=== PATIENT | male | born 1975 | race Caucasian/White ===

== ENCOUNTER 2019-08-23 09:10 | Emergency (ER) | payer OTHER ==
--- NOTE | 2019-08-23 09:59 | EDM.PDOC ---
ED HPI GENERAL MEDICAL PROBLEM - General Chief Complaint: Flank Pain Stated Complaint: POSSIBLE KIDNEY STONE Time Seen by Provider: 08/23/19 09:59 Source of Information: Reports: Patient History Limitations: Reports: No Limitations - History of Present Illness INITIAL COMMENTS - FREE TEXT/NARRATIVE: Patient is a 44-year-old male's complaint of having left CVA and flank pain going on for several days but worse since last night. He states the pain is severe at times but denies any nausea vomiting or diarrhea. He has had no dysuria or hematuria. He denies of the pain radiates anywhere else. He has not had similar symptoms in the past. He has had pyelonephritis once in the past. He is taken nothing for his current pain symptoms. States the pain is keeping him up during the night. Denies having any fevers or shaking chills. Is any change in pain symptoms with eating. Pain is described as sharp in nature Duration: Day(s): (2 days) Location: Reports: Abdomen, Back Quality: Reports: Dull, Sharp Severity: Severe Improves with: Reports: None Worsens with: Reports: None Associated Symptoms: Reports: No Other Symptoms left flank Pain Score (Numeric/FACES): 7 - Related Data Allergies Allergy/AdvReac Type Severity Reaction Status Date / Time No Known Allergies Allergy Verified 08/23/19 09:32 Home Meds: Home Meds Multivitamin [Multi Vitamin Daily] 1 tab PO DAILY 05/10/14 [History] Past Medical History - Past Health History Medical/Surgical History: Denies Medical/Surgical History - Past Surgical History Musculoskeletal Surgical History: Reports: Arthroscopic Knee Social & Family History - Family History Family Medical History: Noncontributory - Tobacco Use Smoking Status *Q: Never Smoker - Recreational Drug Use Recreational Drug Use: No ED ROS GENERAL - Review of Systems Review Of Systems: Comprehensive ROS is negative, except as noted in HPI. ED EXAM, GI/ABD - Physical Exam Exam: See Below Text/Narrative:: Exam: See Below Exam Limited By: No Limitations Head: Atraumatic Neck: Normal Inspection. No: Carotid Bruit, Lymphadenopathy (R) Respiratory/Chest: No Respiratory Distress, Lungs Clear, Normal Breath Sounds, No Accessory Muscle Use. No: Chest Non-Tender Cardiovascular: Normal Peripheral Pulses, Regular Rate, Rhythm, No Edema, No JVD GI/Abdominal: Normal Bowel Sounds, Non-Tender, no splenomegaly Back Exam: Normal Inspection. No: CVA Tenderness (R). Slight tenderness on right flank. There is no rash. Extremities: Normal Inspection. No: No Pedal Edema Neurological: Alert, Oriented, Normal Cognition Psychiatric: Normal Affect Skin Exam: Warm Lymphatic: No Adenopathy Course - Vital Signs Last Recorded V/S: Last Vital Signs Temp 36.1 C 08/23/19 09:29 Pulse 78 08/23/19 09:29 Resp 18 08/23/19 09:29 BP 121/84 08/23/19 09:29 Pulse Ox 94 L 08/23/19 09:29 - Orders/Labs/Meds Orders: Active Orders 24 hr Category Date Time Status Sodium Chloride 0.9% [Saline Flush] Med 08/23/19 10:04 Active 10 ml FLUSH ASDIRECTED PRN Sodium Chloride 0.9% [Saline Flush] Med 08/23/19 10:04 Active 2.5 ml FLUSH ASDIRECTED PRN Saline Lock Insert [OM.PC] Stat Oth 08/23/19 10:04 Ordered Medication Orders Sodium Chloride (Saline Flush) 10 ml FLUSH ASDIRECTED PRN PRN Reason: Keep Vein Open Sodium Chloride (Saline Flush) 2.5 ml FLUSH ASDIRECTED PRN PRN Reason: Keep Vein Open Labs: Laboratory Tests 08/23/19 08/23/19 08/23/19 Range/Units 09:40 10:20 10:20 WBC 6.78 (4.0-11.0) K/uL RBC 4.99 (4.50-5.90) M/uL Hgb 15.4 (13.0-17.0) g/dL Hct 44.6 (38.0-50.0) % MCV 89.4 (80.0-98.0) fL MCH 30.9 (27.0-32.0) pg MCHC 34.5 (31.0-37.0) g/dL RDW Std Deviation 41.9 (28.0-62.0) fl RDW Coeff of Honey 13 (11.0-15.0) % Plt Count 205 (150-400) K/uL MPV 10.30 (7.40-12.00) fL Neut % (Auto) 69.1 (48.0-80.0) % Lymph % (Auto) 19.3 (16.0-40.0) % [place] % (Auto) 6.9 (0.0-15.0) % Eos % (Auto) 4.4 (0.0-7.0) % Baso % (Auto) 0.3 (0.0-1.5) % Neut # (Auto) 4.7 (1.4-5.7) K/uL Lymph # (Auto) 1.3 (0.6-2.4) K/uL [place] # (Auto) 0.5 (0.0-0.8) K/uL Eos # (Auto) 0.3 (0.0-0.7) K/uL Baso # (Auto) 0.0 (0.0-0.1) K/uL Nucleated RBC % 0.0 /100WBC Nucleated RBCs # 0 K/uL Sodium 137 (136-148) mmol/L Potassium 4.5 (3.5-5.1) mmol/L Chloride 100 (98-107) mmol/L Carbon Dioxide 29.5 (21.0-32.0) mmol/L BUN 23 H (7.0-18.0) mg/dL Creatinine 1.1 (0.8-1.3) mg/dL Est Cr Clr Drug Dosing 93.08 mL/min Estimated GFR (MDRD) > 60.0 ml/min Glucose 96 (74-106) mg/dL Calcium 9.3 (8.5-10.1) mg/dL Total Bilirubin 0.6 (0.2-1.0) mg/dL AST 85 H (15-37) IU/L ALT 66 H (14-63) IU/L Alkaline Phosphatase 63 (46-116) U/L Total Protein 7.9 (6.4-8.2) g/dL Albumin 4.3 (3.4-5.0) g/dL Globulin 3.6 (2.6-4.0) g/dL Albumin/Globulin Ratio 1.2 (0.9-1.6) Lipase 173 (73-393) U/L Urine Color YELLOW Urine Appearance CLEAR Urine pH 6.0 (5.0-8.0) Ur Specific [place] 1.020 (1.001-1.035) Urine Protein NEGATIVE (NEGATIVE) mg/dL Urine Glucose (UA) NEGATIVE (NEGATIVE) mg/dL Urine Ketones NEGATIVE (NEGATIVE) mg/dL Urine Occult Blood NEGATIVE (NEGATIVE) Urine Nitrite NEGATIVE (NEGATIVE) Urine Bilirubin NEGATIVE (NEGATIVE) Urine Urobilinogen 0.2 (<2.0) EU/dL Ur Leukocyte Esterase NEGATIVE (NEGATIVE) Meds: Medications Generic Name Dose Route Start Last Admin Trade Name Freq PRN Reason Stop Dose Admin Sodium Chloride 10 ml 08/23/19 10:04 Saline Flush FLUSH ASDIRECTED PRN Keep Vein Open Sodium Chloride 2.5 ml 08/23/19 10:04 Saline Flush FLUSH ASDIRECTED PRN Keep Vein Open Discontinued Medications Generic Name Dose Route Start Last Admin Trade Name Freq PRN Reason Stop Dose Admin Sodium Chloride 1,000 mls @ 999 mls/hr 08/23/19 10:08/23/19 10:19 Normal Saline IV 08/23/19 11:04 999 mls/hr BOLUS ONE Administration Ketorolac Tromethamine 30 mg 08/23/19 10:04 08/23/19 10:19 Toradol IVPUSH 08/23/19 10:05 30 mg ONETIME ONE Administration - Re-Assessments/Exams Free Text/Narrative Re-Assessment/Exam: 08/23/19 11:25 Patient's lab work and urine are unremarkable. CT scan shows him to have several pulmonary nodules largest being 7 mm with recommended follow-up in 3 to 6 months for repeat scan. Otherwise no clear source for patient's discomfort. We will discharge him home with some [place] for his nighttime pain so he can sleep. I recommend he follow-up with his PCP if symptoms continue he may return to ER if having fever chills vomiting or worse pain. Departure - Departure Time of Disposition: 11:26 Disposition: Home, Self-Care 01 Clinical Impression: Flank pain, acute - Discharge Information Instructions: Flank Pain, Adult, [id number] Referrals: Fredi Malhotra MD [Primary Care Provider] - Forms: ED Department Discharge Additional Instructions: [place] with meals. [place] if needed. Follow-up with PCP if not improving. See PCP for repeat CAT scan of the chest for pulmonary nodules within 6 months. Return to ER if having fever chills vomiting or worse pain. The following information is given to patients seen in the emergency department who are being discharged to home. This information is to outline your options for follow-up care. We provide all patients seen in our emergency department with a follow-up referral. The need for follow-up, as well as the timing and circumstances, are variable depending upon the specifics of your emergency department visit. If you don't have a primary care physician on staff, we will provide you with a referral. We always advise you to contact your personal physician following an emergency department visit to inform them of the circumstance of the visit and for follow-up with them and/or the need for any referrals to a consulting specialist. The emergency department will also refer you to a specialist when appropriate. This referral assures that you have the opportunity for follow-up care with a specialist. All of these measure are taken in an effort to provide you with optimal care, which includes your follow-up. Under all circumstances we always encourage you to contact your private physician who remains a resource for coordinating your care. When calling for follow-up care, please make the office aware that this follow-up is from your recent emergency room visit. If for any reason you are refused follow-up, please contact the [facility] Emergency Department at and asked to speak to the emergency department charge nurse. Sepsis Event Note - Evaluation Sepsis Screening Result: No Definite Risk - Focused Exam Vital Signs: Vital Signs Temp Pulse Resp BP Pulse Ox 08/23/19 09:29 36.1 C 78 18 121/84 94 L Date Exam was Performed: 08/23/19 Time Exam was Performed: 11:22 - My Orders Last 24 Hours: My Active Orders 08/23/19 10:04 Sodium Chloride 0.9% [Saline Flush] 10 ml FLUSH ASDIRECTED PRN Sodium Chloride 0.9% [Saline Flush] 2.5 ml FLUSH ASDIRECTED PRN Saline Lock Insert [OM.PC] Stat - Assessment/Plan Last 24 Hours: My Active Orders 08/23/19 10:04 Sodium Chloride 0.9% [Saline Flush] 10 ml FLUSH ASDIRECTED PRN Sodium Chloride 0.9% [Saline Flush] 2.5 ml FLUSH ASDIRECTED PRN Saline Lock Insert [OM.PC] Stat
[2019-08-23] MEDS ORDERED: Ketorolac 30 MG/ML SDV IVPUSH ONE (10:04)
[2019-08-23] MEDS ORDERED: Sodium Chloride 0.9% 10 ML Syringe FLUSH PRN (10:04)
[2019-08-23] MEDS ORDERED: Sodium Chloride 0.9% 1,000 ML IV ONE (10:04)
[2019-08-23] MEDS ORDERED: Sodium Chloride 0.9% 2.5 ML Syringe FLUSH PRN (10:04)
[2019-08-23 10:50] LABS: BLOOD UREA NITROGEN,BUN 23 mg/dL (7.0-18.0); CARBON DIOXIDE,CO2 29.5 mmol/L (21.0-32.0); CHLORIDE,CL 100 mmol/L (98-107); GLUCOSE RANDOM 96 mg/dL (74-106); LIPASE 173 U/L (73-393); POTASSIUM,K 4.5 mmol/L (3.5-5.1); SODIUM,NA 137 mmol/L (136-148)
--- NOTE | 2019-08-23 11:14 | CT ---
INDICATION: Left costovertebral angle pain for 1 day. COMPARISON: None. TECHNIQUE: CT of the abdomen and pelvis without contrast. FINDINGS: Multiple bilateral noncalcified pulmonary nodules. Largest is in the right lower lobe and measures 7 mm in diameter (series 2 image 14). Based on this noncontrast examination the liver, gallbladder, spleen, pancreas and adrenal glands are unremarkable. No renal, ureteral or bladder calculus. No hydronephrosis or hydroureter. Small hypoattenuating right renal lesions are incompletely characterized. Abdominal aorta is normal in caliber. No lymphadenopathy in the abdomen or pelvis. No free fluid or free air. Urinary bladder is unremarkable. Appendix is unremarkable. No evidence of bowel obstruction. Bones are unremarkable. IMPRESSION: 1. No specific findings to account for patient`s symptoms. 2. Multiple noncalcified pulmonary nodules measuring up to 7 mm. According the [employer] guidelines recommend follow-up CT in 3-6 months. 3. Hypoattenuating small renal lesions which are too small to characterize but could represent cysts. Recommend renal ultrasound for further characterization. Please note that all CT scans at this facility use dose modulation, iterative reconstruction, and/or weight-based dosing when appropriate to reduce radiation dose to as low as reasonably achievable. Dictated by Marco Singer MD @ Aug 23 2019 11:06AM Signed by Dr. Marco iSnger @ Aug 23 2019 11:12AM
== END 2019-08-23 11:40 | disposition home or self-care (01) ==
LOC: MW.ED 09:10
DX: R10.9 Unspecified abdominal pain (principal)
CPT/HCPCS: 36415; 74176; 80053; 81003; 83690; 85025; 96361; 96374; 99284; J1885; J7030; 99283